=== PATIENT | male | born 1990 | race Caucasian/White ===

== ENCOUNTER → 2021-01-01 | Outpatient (CLI) | payer BC, OTHER ==
[~2021-01-01] MED LIST: IBUPROFEN200 M1 PO; NORCO5 PO
== END ==
LOC: LAB 11:15
PROVIDERS: ATTEND Orthopaedic Surgery
DX: Z01.812 Encounter for preprocedural laboratory examination (principal); Z20.822 Contact with and (suspected) exposure to COVID-19

== ENCOUNTER 2021-01-03 06:12 | Day surgery (SDC) | payer BC, OTHER ==
[~2021-01-03] VITALS: Ht 177.8 cm; Wt 90.7 kg
--- NOTE | ~2021-01-03 | O ---
[facility] [place] [address] OPERATIVE REPORT Name: SYDNEY KOROMA Room #: 150-4 [facility]..#: [id number] Admission: 01/03/21 Attend Phys: Cruzito Camp MD Discharge: Date of : 89 Report #: [id number] THIS REPORT FOR: cc: KRISHNA BETANCOURT MD, OSSAMA MD Abraham,Cruzito Baca MD ~ DATE OF SERVICE: 01/03/2021 PREOPERATIVE DIAGNOSIS: Right knee medial meniscus tear. POSTOPERATIVE DIAGNOSES: Right knee medial meniscus tear. PROCEDURES: Right knee arthroscopy with partial medial meniscectomy. SURGEON: Cruzito Camp MD. SKIN PILER: No maintenance assistant. ANESTHESIA: LMA. TOURNIQUET TIME: 22 minutes. COMPLICATIONS: None. SPECIMENS: None. CONDITION UPON LEAVING THE OPERATING ROOM: Stable. INDICATIONS FOR PROCEDURE: The patient is a 30-year-old gentleman who has had medial-sided right knee pain and catching. He had an MRI scan shown him to have a tear of the posterior horn of the medial meniscus and after discussion with him, he elected for right knee arthroscopy with partial medial meniscectomy and debridement as needed. DESCRIPTION OF PROCEDURE: Risks, benefits, alternatives, complications were discussed in detail with the patient including but not limited to risk of anesthesia, risk of damage to nerves, arteries, blood vessels, risk for infection, bleeding, risk for continued knee pain and need for reoperation. Informed consent was obtained from the patient. Right knee was appropriately marked in the preoperative holding area. IV Ancef was given for preoperative antibiotics. He was brought to the operating room and placed in supine position on the operating room table. LMA anesthesia was induced without complication. Tourniquet was placed on the right thigh. Right lower extremity was prepped and draped in normal sterile fashion. Timeout was performed properly identifying the patient and procedure as well as the instrumentation. All in the operating [address] [address] OPERATIVE REPORT Name: SYDNEY KOROMA Room #: 150-4 [facility]..#: [id number] Admission: 01/03/21 Attend Phys: Cruzito Camp MD Discharge: Date of : 89 Report #: [id number] room were in agreement. Right lower extremity was exsanguinated, tourniquet was inflated. Tourniquet time was 22 minutes. Standard anterolateral portal was established with 11 blade through the skin. Arthroscope was introduced into the patellofemoral compartment, diagnostic arthroscopy was undertaken. Patellofemoral compartment was visualized and found to be without pathology. Medial gutter was visualized and found to be without pathology. Medial compartment was visualized and medial portal was established under arthroscopic visualization. Probe was introduced in the medial compartment. There was noted to be a complex tear of the posterior horn of medial meniscus. This was trimmed back to a stable rim with arthroscopic biter and smoothed back with a shaver. Notch was visualized and found to have an intact anterior cruciate ligament. Lateral compartment was visualized and found to have an intact lateral meniscus. Lateral gutter was visualized and found to be without pathology. Scope was placed back in the patellofemoral compartment and all fluid was allowed to drain from the knee. Knee was injected with 20 mL of 0.5% Marcaine. Incision was closed with 3-0 nylon. Soft dressing of Adaptic, 4 x 4, Webril, Damir wrap were applied. The patient tolerated this procedure well and went to recovery room under care of anesthesia postoperatively. By: [id number] Cruzito Camp MD /nt
[~2021-01-03 06:12] MED LIST changes: -NORCO5 PO
[2021-01-03 06:40] VITALS: BP 102/71
[2021-01-03] MEDS ORDERED: NORCO5 PO (08:19)
== END 2021-01-03 09:05 | disposition home or self-care (01) ==
LOC: OR 06:12 → TBA 06:13 → OR 07:49
PROVIDERS: ATTEND Orthopaedic Surgery
DX: M23.221 Derangement of posterior horn of medial meniscus due to old tear or injury, right knee (principal); Z98.890 Other specified postprocedural states; Z87.891 Personal history of nicotine dependence; M25.561 Pain in right knee
CPT/HCPCS: 50010; 50101; 50405; 56526; 57103; 57180; 62110; 62900; 70005